=== PATIENT | male | born 1950 | race African-American/Black ===

== ENCOUNTER 2017-09-16 05:38 | Emergency (ER) | payer MEDICARE, MEDICAID ==
[2017-09-16] MEDS ORDERED: ASPIRIN 81 MG TABLET, CHEWABLE PO ONE (06:10)
--- NOTE | 2017-09-16 06:55 | EKG REPORT ---
SEVERITY:- ABNORMAL ECG - SINUS RHYTHM FIRST DEGREE AV BLOCK : Confirmed by: Terrence Austin MD 16-Sep-2017 06:54:04
[2017-09-16] MEDS ORDERED: MAG HYDROX/AL HYDROX/SIMETH SUSP 30 ML UDCUP PO ONE (07:04)
[2017-09-16] MEDS ORDERED: LIDOCAINE 2% VISCOUS SOLN 20 ML UDCUP PO ONE (07:04)
[2017-09-16] MEDS ORDERED: METOCLOPRAMIDE HCL ORAL SOLN 10 MG/10 ML UDCUP PO ONE (07:04)
[2017-09-16] MEDS ORDERED: NITROGLYCERIN 0.4 MG/TAB 25 TAB/BOTTLE SL PRN (07:04)
[2017-09-16 07:08] LABS: ABSOLUTE BASOPHILS # (AUTO) 0.1 10^3/uL (0.0-0.2); ABSOLUTE EOSINOPHILS # (AUTO) 0.1 10^3/uL (0.0-0.6); ABSOLUTE LYMPHOCYTES (AUTO) 1.9 10^3/uL (0.5-4.7); ABSOLUTE MONOCYTES (AUTO) 0.4 10^3/uL (0.1-1.4); ABSOLUTE NEUT (AUTO) 3.2 10^3/uL (1.7-8.2); EOSINOPHILS % (AUTO) 2.4 % (0-6); HEMATOCRIT 41.7 % (37.9-51.0); HEMOGLOBIN 13.5 g/dL (13.5-17.0); LYMPHOCYTES % (AUTO) 33.8 % (13-45); MEAN CORPUSCULAR HEMOGLOBIN 26.7 pg (27.0-33.4); MEAN CORPUSCULAR HGB CONC 32.4 g/dL (32.0-36.0); MEAN CORPUSCULAR VOLUME 83 fl (80-97); MONOCYTES % (AUTO) 6.3 % (3-13); PLATELET COUNT 256 10^3/uL (150-450); RED BLOOD COUNT 5.05 10^6/uL (4.35-5.55); RED CELL DISTRIBUTION WIDTH 14.5 % (11.5-14.0); SEGMENTED NEUTROPHILS % (AUTO) 56.5 % (42-78); TOTAL CELLS COUNTED % (AUTO) 100 %; WHITE BLOOD COUNT 5.6 10^3/uL (4.0-10.5)
--- NOTE | 2017-09-16 07:13 | ER Document Report ---
ED General - General Chief Complaint: Chest Pain Stated Complaint: CHEST PAIN Mode of Arrival: Ambulatory Information source: Patient Notes: 67-year-old male with hypertension presents with complaint of chest pain. Patient states chest pain started 4 days prior to arrival. It is located on the left side of his chest described as a constant heaviness that is worse with deep breathing and movement. Patient denies any injury to the chest. Patient has had prior similar symptoms and was seen at [facility] and given a GI cocktail which he reports relieved his symptoms. He denies any recent illnesses including fever, cough. Patient denies any associated diaphoresis, nausea, lightheadedness, radiation of pain. Patient states that he did feel mildly short of breath this morning. He denies any history of tobacco use. Patient reports that 20 years ago he had a cardiac catheterization which was normal. He also reports that he had a stress test 2 years ago which was also normal. Patient's PCP is Arnie Kinney. He does take baby aspirin daily. TRAVEL OUTSIDE OF THE [place] IN LAST 30 DAYS: No - HPI Onset: Other - 4 days prior to arrival Onset/Duration: Constant Quality of pain: Other - Heaviness Severity: Mild Associated symptoms: Shortness of breath Exacerbated by: Movement, Deep breathing Relieved by: Denies Similar symptoms previously: Yes Recently seen / treated by doctor: No - Related Data Allergies/Adverse Reactions: No Known Allergies Allergy (Verified 09/16/17 08:30) Past Medical History - General Information source: Patient, [facility] Records - Social History Smoking Status: Never Smoker Frequency of alcohol use: None Drug Abuse: None Lives with: Family Family History: Reviewed & Not Pertinent Patient has suicidal ideation: No Patient has homicidal ideation: No - Past Medical History Cardiac Medical History: Reports: Hx Hypertension Review of Systems - Review of Systems Notes: REVIEW OF SYSTEMS: CONSTITUTIONAL : Denies fever, chills, or sweats. Denies recent illness. Denies weight loss, recent hospitalizations. EENT: Denies visula changes, eye pain. Denies nasal or sinus congestion or discharge. Denies sore throat, oral lesions, difficulty swallowing. CARDIOVASCULAR: Denies palpitations or racing or irregular heart beat. Denies lower extremity edema. RESPIRATORY: Denies cough, cold, or chest congestion. GASTROINTESTINAL: Denies abdominal pain or distention. Denies nausea, vomiting , or diarrhea. Denies blood in vomitus, stools, or per rectum. Denies black, tarry stools. Denies constipation. GENITOURINARY: Denies difficulty urinating, painful urination, burning, frequency, blood in urine, or vaginal discharge. MUSCULOSKELETAL: Denies back or neck pain or stiffness. Denies joint pain or swelling. SKIN: Denies rash, lesions or sores. HEMATOLOGIC : Denies easy bruising or bleeding. LYMPHATIC: Denies swollen, enlarged glands. NEUROLOGICAL: Denies confusion or altered mental status. Denies passing out or loss of consciousness. Denies dizziness or lightheadedness. Denies headache. Denies weakness or paralysis or loss of use of either side. Denies problems with gait or speech. Denies sensory loss, numbness, or tingling. Denies seizures. PSYCHIATRIC: Denies anxiety or stress. Denies depression, suicidal ideation, or homicidal ideation. Physical Exam - Vital signs Vitals: Temp Pulse Resp BP Pulse Ox 97.8 F 52 L 16 182/118 H 99 09/16/17 05:52 09/16/17 05:52 09/16/17 05:52 09/16/17 05:52 09/16/17 05:52 Interpretation: Normal, Hypertensive, Bradycardic Notes: PHYSICAL EXAMINATION: GENERAL: Well-appearing, well-nourished and in no acute distress. HEAD: Atraumatic, normocephalic. EYES: Pupils equal round and reactive to light, extraocular movements intact, sclera anicteric, conjunctiva are normal. ENT: Nares patent, oropharynx clear without exudates. Moist mucous membranes. NECK: Normal range of motion, supple without lymphadenopathy LUNGS: Breath sounds clear to auscultation bilaterally and equal. No wheezes rales or rhonchi. HEART: Regular rate and rhythm without murmurs. Chest nontender ABDOMEN: Soft, nontender, nondistended abdomen. No guarding, no rebound. No masses appreciated. Musculoskeletal: Normal range of motion, no pitting edema. No cyanosis. NEUROLOGICAL: Cranial nerves grossly intact. Normal speech, normal gait. Normal sensory, motor exams PSYCH: Normal mood, normal affect. SKIN: Warm, Dry, normal turgor, no rashes or lesions noted. - Notes Notes: PHYSICAL EXAMINATION: GENERAL: Well-appearing, well-nourished and in no acute distress. HEAD: Atraumatic, normocephalic. EYES: Pupils equal round and reactive to light, extraocular movements intact, sclera anicteric, conjunctiva are normal. ENT: Nares patent, oropharynx clear without exudates. Moist mucous membranes. NECK: Normal range of motion, supple without lymphadenopathy LUNGS: Breath sounds clear to auscultation bilaterally and equal. No wheezes rales or rhonchi. HEART: Regular rate and rhythm without murmurs. No chest wall tenderness ABDOMEN: Soft, nontender, nondistended abdomen. No guarding, no rebound. No masses appreciated. Musculoskeletal: Normal range of motion, no pitting or edema. No cyanosis. NEUROLOGICAL: Cranial nerves grossly intact. Normal speech, normal gait. Normal sensory, motor exams PSYCH: Normal mood, normal affect. SKIN: Warm, Dry, normal turgor, no rashes or lesions noted. Course - Re-evaluation Re-evalutation: 09/16/17 07:16 67-year-old male with hypertension presents with 4 days of constant chest pain that he describes as heaviness. Patient states he suspects it is gas. Upon arrival vitals were reviewed. Patient is hypertensive but states he has not taken his morning medications yet. Patient states he has had prior similar symptoms and was seen at [facility] and given a GI cocktail which did relieve his symptoms. 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 It also showed a first-degree AV block. Aspirin and nitro were administered. Patient refusing nitro. Fentanyl was then administered. Patient's bmp showed renal insufficiency which improved with fluids and which the patient and his significant other reports to be his baseline. Troponins x2 were wnl. 09/16/17 10:39 Patient reports mild resolution of chest pain. Have spoken to him several times regarding admission and he continues to decline. He does agree to repeat cardiac enzymes. Patient advised to follow-up with his primary care physician for repeat cardiac testing. Patient provided the opportunity to ask questions, and express concerns. Discharge instructions discussed. Patient is agreeable with discharge home. Return indications explained and discussed with the patient who displays understanding. Patient encouraged to return to the emergency department immediately with any concerns. 09/17/17 09:28 - Vital Signs Vital signs: Temp Pulse Resp BP Pulse Ox 97.5 F 44 L 18 144/76 H 93 09/16/17 13:00 09/16/17 13:00 09/16/17 13:00 09/16/17 13:00 09/16/17 13:00 - Laboratory Result Diagrams: 09/16/17 06:57 09/16/17 11:23 Laboratory results interpreted by me: 09/16/17 09/16/17 09/16/17 06:57 06:57 11:23 MCH 26.7 L RDW 14.5 H Sodium 145.3 H 146.4 H Chloride 110 H Carbon Dioxide 31 H BUN 21 H Creatinine 1.55 H 1.30 H Est GFR ( Amer) 55 L Est GFR (Non-Af Amer) 45 L 55 L Calcium 8.3 L Creatine Kinase 318 H - Diagnostic Test Radiology reviewed: Pending, Image reviewed, Reports reviewed - EKG Interpretation by Me EKG shows normal: Sinus rhythm Rate: Bradycardia Rhythm: NSR Heart block present: 1st Degree Discharge - Discharge Clinical Impression: Renal insufficiency, mild, Chest wall pain Condition: Good Disposition: HOME, SELF-CARE Instructions: Aspirin (Cardiac) (OM), Chest Wall Pain (OM), Chest Pain of Unclear Cause (OM) Additional Instructions: Your lab work today showed mild renal insufficiency likely secondary to poor hydration. Please drink water. Please follow-up with your primary care physician to discuss your chest pain. Prescriptions: Cyclobenzaprine HCl [Flexeril 10 mg Tablet] 10 mg PO TIDP PRN #15 tab PRN Reason: Forms: Elevated Blood Pressure Referrals: YAZ KINNEY MD [Primary Care Provider] - Follow up as needed
[2017-09-16 07:29] LABS: ALANINE AMINOTRANSFERASE 31 U/L (21-72); ALBUMIN 3.9 g/dL (3.5-5.0); ALKALINE PHOSPHATASE 57 U/L (38-126); ANION GAP 9 (5-19); ASPARTATE AMINO TRANSFERASE 32 U/L (17-59); BILIRUBIN,DIRECT 0.3 mg/dL (0.0-0.4); BILIRUBIN,TOTAL 0.4 mg/dL (0.2-1.3); BLOOD UREA NITROGEN 21 mg/dL (7-20); CALCIUM 9.2 mg/dL (8.4-10.2); CARBON DIOXIDE 31 mmol/L (22-30); CHLORIDE 105 mmol/L (98-107); CREATINE KINASE 318 U/L (55-170); GLUCOSE 102 mg/dL (75-110); POTASSIUM 3.8 mmol/L (3.6-5.0); SODIUM 145.3 mmol/L (137-145)
[2017-09-16 07:41] LABS: CREATINE KINASE MB 2.63 ng/mL (<4.55); NT PRO BNP 105 pg/mL (5-900)
[2017-09-16 07:44] LABS: TROPONIN I < 0.012 ng/mL
--- NOTE | 2017-09-16 07:48 | RADIOLOGY REPORT (SQ) ---
EXAM DESCRIPTION: CHEST SINGLE VIEW COMPLETED DATE/TIME: 09/16/2017 7:36 am REASON FOR STUDY: CP COMPARISON: None. EXAM PARAMETERS: NUMBER OF VIEWS: One view. TECHNIQUE: Single frontal radiographic view of the chest acquired. RADIATION DOSE: NA LIMITATIONS: Lordotic positioning. EKG leads over the chest FINDINGS: LUNGS AND PLEURA: No opacities, masses or pneumothorax. No pleural effusion. MEDIASTINUM AND HILAR STRUCTURES: No masses. Contour normal. HEART AND VASCULAR STRUCTURES: Heart normal in size. Normal vasculature. BONES: No acute findings. HARDWARE: None in the chest. OTHER: No other significant finding. IMPRESSION: NO ACUTE RADIOGRAPHIC FINDING IN THE CHEST. TECHNICAL DOCUMENTATION: JOB ID: [id number] [employer] ([employer])- All Rights Reserved Reading location - IP/workstation name: [email or web address]
[2017-09-16] MEDS ORDERED: NORMAL SALINE 1000 ML 1,000 ML IV ONE ×2 (08:05→08:07)
[2017-09-16] MEDS ORDERED: FENTANYL CITRATE INJ/PF 100 MCG/2 ML AMPUL IV ONE ×2 (08:10→10:12)
[2017-09-16] MEDS ORDERED: FAMOTIDINE INJ/PF 20 MG/2 ML SDV IV ONE (10:12)
[2017-09-16 13:02] VITALS: BP 144/76
[2017-09-16 13:05] LABS: ANION GAP 11 (5-19); BLOOD UREA NITROGEN 18 mg/dL (7-20); CALCIUM 8.3 mg/dL (8.4-10.2); CARBON DIOXIDE 25 mmol/L (22-30); CHLORIDE 110 mmol/L (98-107); GLUCOSE 93 mg/dL (75-110); SODIUM 146.4 mmol/L (137-145)
--- NOTE | 2017-09-16 18:08 | EKG REPORT ---
SEVERITY:- ABNORMAL ECG - SINUS BRADYCARDIA FIRST DEGREE AV BLOCK PROBABLE LEFT ATRIAL ABNORMALITY : Confirmed by: Terrence Austin MD 16-Sep-2017 18:07:29
== END 2017-09-16 13:41 | disposition home or self-care (01) ==
LOC: ER 05:38
DX: R07.89 Other chest pain (principal); N28.9 Disorder of kidney and ureter, unspecified; I44.0 Atrioventricular block, first degree; I10 Essential (primary) hypertension; R06.02 Shortness of breath; Z79.82 Long term (current) use of aspirin
CPT/HCPCS: 93005; 96376; 99285; 96361; 96374; 96375; 36415; 82553; 82550; 85025; 80048; 80053; 84484; 85379; 83880; 71045; 93010; A9270 ×2; J3010; J3490; J7030; S0028

== ENCOUNTER 2018-02-18 14:26 | Emergency (ER) | payer MEDICARE, MEDICAID ==
[2018-02-18] MEDS ORDERED: DIPH/PERTUSS(ACELL)/TETANUS VAC/PF 0.5 ML SYR (>=10YO) IM ONE (15:03)
--- NOTE | 2018-02-18 15:20 | ER Document Report ---
ED General - General Chief Complaint: Head Injury with LOC Stated Complaint: HEAD INJURY Time Seen by Provider: 02/18/18 14:58 Notes: Patient is a 68-year-old male that presents to the emergency department for chief complaint of head injury. Patient states that he was working on a car, when the header block fell off of a lift from behind him about a foot and hit him in the back of the head. He denies loss of consciousness, but states he believes he has a cut on his head. He denies noting any numbness, tingling or weakness in any of his extremities, denies neck pain. He denies any other injuries. He is not sure of his last tetanus vaccination. Denies having any pain at this time. Past Medical History: Hypertension Past Surgical History: Achilles tendon surgery Social History: Denies tobacco, alcohol or drug use Family History: Reviewed and noncontributory for presenting illness Allergies: Reviewed, see documented allergy list. REVIEW OF SYSTEMS: Unless otherwise stated in this report the patient's positive and negative responses for review of systems for constitutional, eyes, ENT, cardiovascular, respiratory, gastrointestinal, neurological, genitourinary, musculoskeletal, and integumentary systems and related systems to the presenting problem are either as stated in the HPI or were not pertinent or were negative for the symptoms and/or complaints related to the presenting medical problem. PHYSICAL EXAMINATION: Vital signs reviewed, nursing noted reviewed. GENERAL: Well-appearing, well-nourished and in no acute distress. HEAD: Normocephalic, there is a 2.6 cm scalp laceration noted to the posterior scalp, no active bleeding at this time, no palpated depressed skull fracture EYES: Eyes appear normal, extraocular movements intact, sclera anicteric, conjunctiva are normal. ENT: nares patent, oropharynx clear without exudates. Moist mucous membranes. NECK: Normal range of motion, supple without lymphadenopathy LUNGS: Breath sounds clear to auscultation bilaterally and equal. No wheezes rales or rhonchi. HEART: Regular rate and rhythm without murmurs ABDOMEN: Soft, nontender, normoactive bowel sounds. No rebound, guarding, or rigidity. No masses appreciated. EXTREMITIES: Nontender, good range of motion, no pitting or edema. NEUROLOGICAL: No focal neurological deficits. Moves all extremities spontaneously Motor and sensory grossly intact on exam. PSYCH: Normal mood, normal affect. SKIN: Warm, Dry, normal turgor, no rashes or lesions noted on exposed skin TRAVEL OUTSIDE OF THE [place] IN LAST 30 DAYS: No - Related Data Allergies/Adverse Reactions: No Known Allergies Allergy (Verified 02/18/18 14:29) Past Medical History - Social History Smoking Status: Never Smoker Frequency of alcohol use: None Drug Abuse: None Family History: Reviewed & Not Pertinent Patient has suicidal ideation: No Patient has homicidal ideation: No - Past Medical History Cardiac Medical History: Reports: Hx Hypertension Renal/ Medical History: Denies: Hx Peritoneal Dialysis Past Surgical History: Reports: Hx Orthopedic Surgery - left ankle Physical Exam - Vital signs Vitals: Temp Pulse Resp BP Pulse Ox 98.6 F 52 L 14 151/90 H 98 02/18/18 14:46 02/18/18 14:46 02/18/18 14:46 02/18/18 14:46 02/18/18 14:46 Course - Re-evaluation Re-evalutation: CT imaging was obtained of the head, and negative for any acute intracranial injury, patient's scalp laceration was cleaned and irrigated, and repaired as described, patient tolerated well given instructions on when to return to the emergency department, he was updated on tetanus vaccination. And discharged to home. - Vital Signs Vital signs: Temp Pulse Resp BP Pulse Ox 98.6 F 51 L 17 164/79 H 98 02/18/18 14:46 02/18/18 15:45 02/18/18 15:45 02/18/18 15:45 02/18/18 15:45 Procedures - Laceration/Wound Repair Posterior Head Wound length (cm): 2.6 Wound's Depth, Shape: Linear Laceration pre-procedure: Shur-Clens applied Wound explored: Clean, No foreign body removed Wound Repaired With: Zac Number of Sutures: 5 Complications: No Notes: Patient's wound was thoroughly cleaned, wound was approximated with 5 zac, patient did not require anesthetic, and tolerated without, no complications Discharge - Discharge Clinical Impression: Closed head injury Qualifiers: Encounter type: initial encounter Qualified Code(s): S09.90XA - Unspecified injury of head, initial encounter Scalp laceration Qualifiers: Encounter type: initial encounter Qualified Code(s): S01.01XA - Laceration without foreign body of scalp, initial encounter Condition: Stable Disposition: HOME, SELF-CARE Instructions: Antibiotic Ointment Protection ([facility]), Care of Stapled Wounds ([facility] ), Tetanus Immunization Given ([facility]) Additional Instructions: FOLLOW UP IN 7 DAYS FOR STAPLE REMOVAL Referrals: YAZ TINEO MD [ACTIVE STAFF] - Follow up as needed
--- NOTE | 2018-02-18 15:26 | RADIOLOGY REPORT (SQ) ---
EXAM DESCRIPTION: CT HEAD WITHOUT COMPLETED DATE/TIME: 02/18/2018 3:16 pm REASON FOR STUDY: closed head injury COMPARISON: None. TECHNIQUE: Axial images acquired through the brain without intravenous contrast. Images reviewed wi th bone, brain and subdural windows. Additional sagittal and coronal reconstructions were generated. Images stored on PACS. All CT scanners at this facility use dose modulation, iterative reconstruction, and/or weight based d osing when appropriate to reduce radiation dose to as low as reasonably achievable (ALARA). [facility]: Dose Right [facility]: CareDose [facility]: Dose Right [facility]: Teradose 4D [facility]: Retroficiency RADIATION DOSE: CT Rad equipment meets quality standard of care and radiation dose reduction techniq ues were employed. CTDIvol: 53.2 mGy. DLP: 1150 mGy-cm. mGy. LIMITATIONS: None. FINDINGS: VENTRICLES: Normal size and contour. CEREBRUM: No masses. No hemorrhage. No midline shift. No evidence for acute infarction. Normal gra y/white matter differentiation. No areas of low density in the white matter. CEREBELLUM: No masses. No hemorrhage. No alteration of density. No evidence for acute infarction. EXTRAAXIAL SPACES: No fluid collections. No masses. ORBITS AND GLOBE: No intra- or extraconal masses. Normal contour of globe without masses. CALVARIUM: No fracture. PARANASAL SINUSES: No fluid or mucosal thickening. SOFT TISSUES: No mass or hematoma. OTHER: No other significant finding. IMPRESSION: NORMAL BRAIN CT WITHOUT CONTRAST. EVIDENCE OF ACUTE STROKE: NO. COMMENT: Quality ID # [id number]: Final reports with documentation of one or more dose reduction techniques (e.g., Automated exposure control, adjustment of the mA and/or kV according to patient size, use of iterative reconstruction technique) TECHNICAL DOCUMENTATION: JOB ID: [id number] [employer]- All Rights Reserved Reading location - IP/workstation name: [email or web address]
[2018-02-18 15:48] VITALS: BP 164/79
== END 2018-02-18 15:48 | disposition home or self-care (01) ==
LOC: ER 14:26
DX: S01.01XA Laceration without foreign body of scalp, initial encounter (principal); W20.8XXA Other cause of strike by thrown, projected or falling object, initial encounter; Y93.89 Activity, other specified; I10 Essential (primary) hypertension; Z23 Encounter for immunization
CPT/HCPCS: 70450; 90471; 90715; 99283